=== PATIENT | female | born 1970 | race Caucasian/White ===

== ENCOUNTER 2022-12-30 15:32 | Emergency (ER) | payer SELFPAY ==
[~2022-12-30] VITALS: Ht 162.6 cm; Wt 74.0 kg
[2022-12-30 19:56] LABS: BASOPHILS % 0.4 % (0.0-2.0); EOSINOPHILS % 1.5 % (0.0-5.0); HEMATOCRIT. 44.4 % (36.0-48.0); HEMOGLOBIN. 15.6 g/dL (12.0-16.0); LYMPHOCYTES % 25.9 % (20.0-50.0); MEAN CORPUSCULAR HEMOGLOBIN 32.3 pg (28.0-32.0); MEAN CORPUSCULAR VOLUME 91.8 fL (81.0-99.0); MEAN PLATELET VOLUME 7.7 fl (7.4-10.4); MONOCYTES % 9.2 % (2.0-8.0); PLATELET 306 x1000/uL (130-400); RED BLOOD CELL COUNT 4.83 mill/uL (4.2-5.4); RED CELL DISTRIBUTION WIDTH 13.7 % (11.6-14.6)
[2022-12-30 19:58] LABS: CHLORIDE 106 mEq/L (98-107)
[2022-12-30 20:09] LABS: D-DIMER 0.47 mg/L FEU (<0.50); PROTHROMBIN TIME 10.3 sec (9.6-11.0)
[2022-12-30] MEDS ORDERED: AMOX-494 MT (20:17)
[2022-12-30 21:04] VITALS: BP 125/86
== END 2022-12-30 21:05 | disposition home or self-care (01) ==
LOC: ER 15:32
DX: J18.9 Pneumonia, unspecified organism (principal); I25.2 Old myocardial infarction; Z98.51 Tubal ligation status; Z86.73 Personal history of transient ischemic attack (TIA), and cerebral infarction without residual deficits; Z86.59 Personal history of other mental and behavioral disorders
CPT/HCPCS: 36415; 71045; 80053; 83880; 84484; 85025; 85379; 99284